=== PATIENT | female | born 1985 | race Caucasian/White ===

== ENCOUNTER 2023-05-18 08:50 | Emergency (ER) | payer BC, SELFPAY ==
--- NOTE | ~2023-05-18 | US_ITS ---
EXAMINATION: US OB transvaginal DATE: 05/18/2023 10:23 INDICATION: Vaginal bleeding, positive test TECHNIQUE: Real-time pelvic transabdominal and transvaginal ultrasound was performed. COMPARISON: 03/11/2013 FINDINGS: The uterus measures 10.4 x 5.4 x 5.0 cm. Endometrial thickness measures approximately 12 mm . No intrauterine gestational sac is identified. The right ovary measures 3.3 x 1.8 x 2.0 cm. The lef t ovary measures 2.1 x 1.5 x 1 point. There is normal vascular flow in the ovaries. There is no free fluid in the pelvis. IMPRESSION: 1. of unknown location. Although no intrauterine gestational sac is seen, this may be due t o early gestation. If the patient is clinically stable, recommend followup with serial beta-hCG and u ltrasound. Reviewed, dictated and finalized at location B. IMPRESSION: 1. of unknown location. Although no intrauterine gestational sac is s een, this may be due to early gestation. If the patient is clinically stable, r ecommend followup with serial beta-hCG and ultrasound.
[2023-05-18 08:56] VITALS: BP 116/67; PULSE 98; RESP 16; TEMP 36.6; O2SAT 100
--- NOTE | 2023-05-18 09:32 | ED.FEMALEGU ---
HPI - Female Genitourinary General Chief complaint: Vaginal Bleeding Stated complaint: vaginal bleeding - positive test Time Seen by Provider: 05/18/23 09:03 Source: patient Mode of arrival: ambulatory Limitations: no limitations History of Present Illness HPI Narrative: This is a 37-year-old female who presents to the ED with chief complaint of vaginal bleeding x8 days with a positive test. Reports last normal menstrual period 04/09/2023. She is G4, with 1 previous miscarriage in 2004 that required a D&C. She reports that she had a little bit increased bleeding today but has been just spotting in the past several days. She reports mild abdominal cramps in the lower abdomen. reports some UTI symptoms a few days ago but states feeling fine since then. She also reports feeling shaky and feverish since a couple of days ago. She also notes a little bit of lightheadedness that is intermittent. Denies chest pain, shortness of breath, cough, nausea, vomiting, diarrhea. Related Data Allergies Allergy/AdvReac Type Severity Reaction Status Date / Time Sulfa (Sulfonamide Allergy Unknown Unknown Verified 05/18/23 08:51 Antibiotics) Review of Systems Review of Systems: All systems as dictated in [facility] Family History Family History (Updated 05/28/14 @ 07:13 by DOCTOR UNKNOWN) Father Depression Family history of alcoholism Mother Depression Family history of alcoholism Family history of malignant neoplasm Sibling Depression Other Family history of thyroid disease Social History Social History Alcohol intake: current Exam Narrative: GENERAL: Well-appearing, well-nourished, and in no acute distress. HEAD: Normocephalic, atraumatic. EYES: PERRLA and EOMI. ENT: Nares clear, no rhinorrhea or epistaxis. Mucous membranes moist. Oropharynx without tonsillar hypertrophy exudate or other lesions. NECK: Supple. No adenopathy or masses. CHEST: No respiratory distress. Clear to auscultation. No wheezes rales or rhonchi HEART: Regular rate and rhythm. No murmur heard. Normal peripheral pulses. ABDOMEN: Soft, nontender, nondistended, normal active bowel sounds. MSK: Normal range of motion. No edema. SKIN: Warm, dry, no rash. NEURO: Alert and oriented x3. No focal deficits. PSYCH: Normal mood and affect. 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 present: Mild amount of blood present in the vaginal vault Cervical os slightly open with draining blood Course Vital Signs Vital signs: Vital Signs Temperature 97.9 F 05/18/23 08:56 Pulse Rate 98 05/18/23 08:56 Respiratory Rate 16 05/18/23 08:56 Blood Pressure 116/67 05/18/23 08:56 Pulse Oximetry 100 05/18/23 08:56 Oxygen Delivery Room Air 05/18/23 08:56 Temperature 97.9 F 05/18/23 08:56 Pulse Rate 88 05/18/23 10:19 Respiratory Rate 18 05/18/23 10:19 Blood Pressure 107/68 05/18/23 10:19 Pulse Oximetry 100 05/18/23 10:19 Oxygen Delivery Room Air 05/18/23 08:56 MDM - Female Genitourinary MDM Narrative Medical decision making narrative: This is a 37-year-old with chief complaint of vaginal bleeding and abdominal cramping for the past 10 days. She reports that she was starting her period but then took a test and realized that it was positive. Vitals are normal. Physical exam is overall benign. However on pelvic exam blood in the vaginal vault with an open cervical os draining small amount of blood. Certainly concern for threatened or inevitable miscarriage. Beta-hCG is around 153 today. Lab work is otherwise unremarkable. Blood type a positive. Ultrasound shows of unknown location. Although no intrauterine gestational sac is seen, this may be due to early gestation. If the patient is clinically stable, recommend followup with serial beta-hCG and ultrasound.. Patient remained stable upon reevaluation. No evidence of any septic . She follows
[2023-05-18 09:34] LABS: Basophils Percent Auto 0.6 % (0.2-1.2); Eosinophils Absolute Auto 0.1 K/mm3 (0-0.3); Hematocrit 39.1 % (37.0-47.0); Hemoglobin 13.1 g/dL (12.0-15.0); Immature Granulocyte Absolute 0.02 K/mm3 (0.00-0.031); Immature Granulocyte Percent A 0.3 % (0-0.5); Lymphocytes Absolute Auto 1.08 K/mm3 (0.9-3.2); Lymphocytes Percent Auto 15.1 % (18.3-44.2); Mean Corpuscular HGB Conc 33.5 g/dl (32-36); Mean Corpuscular Hemoglobin 31.5 pg (26-34); Monocytes Absolute Auto 0.6 K/mm3 (0.1-0.6); Monocytes Percent Auto 8.1 % (2.6-8.5); Neutrophils Absolute Auto 5.4 K/mm3 (1.3-6.7); Neutrophils Percent Auto 74.9 % (45.5-73.1); Platelet Count Result 238 k/mm3 (150-375); Red Blood Count 4.16 M/mm3 (4.2-5.4); White Blood Count 7.2 K/mm3 (4.5-10.0)
[2023-05-18 09:43] LABS: Alanine Aminotransferase 19 U/L (6-35); Albumin Level 4.6 g/dL (3.5-5.1); Alkaline Phosphatase 37 U/L (38-126); Anion Gap 5 mmol/L (8-16); Aspartate Amino Transferase 27 U/L (14-36); Bilirubin,Total 1.2 mg/dL (0.2-1.3); Blood Urea Nitrogen 9 mg/dL (7-17); Calcium 9.3 mg/dL (8.4-10.2); Carbon Dioxide 25 mmol/L (22-30); Chloride 104 mmol/L (98-107); Estimated CRCL calculation 73 ml/min; Estimated Glomerular Filt Rate > 60; Glucose 94 mg/dL (65-110); Sodium 134 mmol/L (137-145)
[2023-05-18 09:59] LABS: Beta HCG Quantitative 153.35 mIU/ML
[2023-05-18 10:19] VITALS: BP 107/68; PULSE 88; RESP 18; O2SAT 100
== END 2023-05-18 11:37 | disposition home or self-care (01) ==
PROVIDERS: Emergency Provider Physician Assistant; PCP Family Medicine Sports Medicine
DX: O20.0 Threatened abortion (principal); Z3A.01 Less than 8 weeks gestation of pregnancy
CPT/HCPCS: 36415; 76817; 80053; 84702; 85025; 85461; 86850; 86900; 86901; 99284